=== PATIENT | male | born 1940 | race Two or more races ===

== ENCOUNTER 2024-11-09 13:21 | Emergency (ER) | payer MEDICAID, OTHER ==
[~2024-11-09] VITALS: Ht 165.1 cm; Wt 62.6 kg
[2024-11-09 13:21] VITALS: BP 103/56; O2SAT 96
[2024-11-09] MEDS ORDERED: CILO100T PO (13:37)
[2024-11-09] MEDS ORDERED: EMPA10TA PO (13:37)
[2024-11-09] MEDS ORDERED: FURO-151 PO (13:37)
[2024-11-09] MEDS ORDERED: APIX2.5T PO (13:37)
[2024-11-09] MEDS ORDERED: SPIR25TA6 PO (13:37)
[2024-11-09] MEDS ORDERED: ATOR10TA PO (13:37)
[2024-11-09] MEDS ORDERED: POTA10CA43 PO (13:37)
[2024-11-09] MEDS ORDERED: AMIO100T4 PO (13:37)
[2024-11-09] MEDS ORDERED: TAMS-3 PO (13:37)
[2024-11-09 14:06] LABS: *BILIRUBIN,URIN NEGATIVE (NEGATIVE); *BLOOD, URINE 3+ (NEGATIVE); *CLARITY,URINE CLEAR (CLEAR); *COLOR,URINE YELLOW (YELLOW); *KETONES,URINE NEGATIVE (NEGATIVE); *PROTEIN,URINE NEGATIVE (NEGATIVE); *UROBILINOGEN,URINE 1.0 E.U./dl (NORMAL); LEUKOCYTE ESTERASE ,URINE 3+ (NEGATIVE); NITRITE, URINE NEGATIVE (NEGATIVE)
[2024-11-09 14:15] LABS: UGLUCOSE 2+ (NEGATIVE)
[2024-11-09 14:19] LABS: SQUAMOUS EPITHELIAL CELL,UR FEW /HPF (NONE SEEN)
[2024-11-09] MEDS ORDERED: CEPH500T PO (15:23)
== END 2024-11-09 16:33 ==
LOC: ER 13:21
DX: T83.091A Other mechanical complication of indwelling urethral catheter, initial encounter (principal); I11.9 Hypertensive heart disease without heart failure; E78.5 Hyperlipidemia, unspecified; I48.20 Chronic atrial fibrillation, unspecified; N39.0 Urinary tract infection, site not specified; N40.1 Benign prostatic hyperplasia with lower urinary tract symptoms; Z79.01 Long term (current) use of anticoagulants; Z79.84 Long term (current) use of oral hypoglycemic drugs; Z79.899 Other long term (current) drug therapy; Y73.8 Miscellaneous gastroenterology and urology devices associated with adverse incidents, not elsewhere classified
CPT/HCPCS: 87077; 87086; A4606; A4663

== ENCOUNTER 2024-12-01 20:11 | Emergency (ER) | payer OTHER ==
[~2024-12-01] VITALS: Ht 172.7 cm; Wt 72.6 kg
[2024-12-01 20:11] VITALS: BP 121/73
[~2024-12-01 20:11] MED LIST: AMIO100T4 PO; APIX2.5T PO; ATOR10TA PO; CEPH500T PO; CILO100T PO; EMPA10TA PO; FURO-151 PO; POTA10CA43 PO; SPIR25TA6 PO; TAMS-3 PO
[2024-12-01] MEDS ORDERED: HYDROCODONE/APAP 5-325MG TABLET ONE (21:00)
[2024-12-01] MEDS: HYDROCODONE/APAP 5-325MG TABLET PO ONE (21:05)
[2024-12-01 21:07] LABS: *BILIRUBIN,URIN NEGATIVE (NEGATIVE); *BLOOD, URINE 2+ (NEGATIVE); *COLOR,URINE YELLOW (YELLOW); *KETONES,URINE NEGATIVE (NEGATIVE); *PROTEIN,URINE NEGATIVE (NEGATIVE); *UROBILINOGEN,URINE 1.0 E.U./dl (NORMAL); LEUKOCYTE ESTERASE ,URINE 3+ (NEGATIVE); NITRITE, URINE NEGATIVE (NEGATIVE); UGLUCOSE 2+ (NEGATIVE)
[2024-12-01 21:08] LABS: *CLARITY,URINE HAZY (CLEAR)
[2024-12-01] MEDS ORDERED: CEFP200T14 PO (21:24)
[2024-12-01 21:27] LABS: URINE AMORPHOUS PHOSPHATES FEW /HPF
[2024-12-01] MEDS ORDERED: CIPROFLOXACIN HCL 250 MG TABLET PO ONE (21:30)
[2024-12-01] MEDS: CEFTRIAXONE 500 MG VIAL IM ONE (21:35)
[2024-12-01 22:28] VITALS: BP 122/70; O2SAT 100
== END 2024-12-01 22:31 ==
LOC: ER 20:17
DX: T83.091A Other mechanical complication of indwelling urethral catheter, initial encounter (principal); N30.90 Cystitis, unspecified without hematuria; I11.9 Hypertensive heart disease without heart failure; E78.5 Hyperlipidemia, unspecified; I48.91 Unspecified atrial fibrillation; Z79.01 Long term (current) use of anticoagulants; Z79.84 Long term (current) use of oral hypoglycemic drugs; Z79.899 Other long term (current) drug therapy; Y73.8 Miscellaneous gastroenterology and urology devices associated with adverse incidents, not elsewhere classified
CPT/HCPCS: 99284; 81001; 87086; 51702; 96372; J0696; A4606; A4663